=== PATIENT | male | born 1995 ===

== ENCOUNTER 2022-05-22 14:40 | Emergency (ER) | payer SELFPAY ==
[2022-05-22 15:19] LABS: HEMOGLOBIN 15.8 gm/dl (14.0-17.5); RED BLOOD COUNT 5.37 M/UL (4.20-5.50)
[2022-05-22 15:43] LABS: BUN/CREATININE RATIO 17 (0-10)
== END 2022-05-22 19:20 | disposition left against medical advice (07) ==
LOC: ER1 14:40
PROVIDERS: Physician Assistant Medical
DX: J02.9 Acute pharyngitis, unspecified (principal)
CPT/HCPCS: 70491; 80053; 85025; 87081; 87880; 99283; Q9967